=== PATIENT | female | born 1975 | race Caucasian/White ===

== ENCOUNTER 2017-01-07 12:48 | Emergency (ER) | payer OTHER ==
[2017-01-07] MEDS ORDERED: SODIUM CHLORIDE 500 ML IV STA (13:13)
[2017-01-07] MEDS ORDERED: MAG HYDROX/AL HYDROX/SIMETH 355 ML ORAL.SUSP PO ONE (13:13)
[2017-01-07] MEDS ORDERED: FAMOTIDINE 20 MG/50 ML IVPB 20 MG in PREMIX 50 IVPB ONE (13:13)
--- NOTE | 2017-01-07 13:17 | PDOC ---
History of Present Illness - General History Source: Patient Exam Limitations: No Limitations <Lawrence Bae - Last Filed: 01/07/17 13:58> <MonishaGuy - Last Filed: 01/07/17 17:24> - General Chief Complaint: Chest Pain Stated Complaint: CHEST TIGHTNESS Time Seen by Provider: 01/07/17 13:02 - History of Present Illness Initial Comments: 01/07/17 13:58 The patient is a 41 year old female with a significant past medical history of HTN (not on any medication) who presents to the ED s/p syncope earlier today. The patient reports she has been feeling generally weak for the past day or so. Today she woke up feeling ok, she was at work when she felt dizzy, nauseas/ vomited x 1, and then syncopized around 9 am earlier today. She also states a burning sensation in her chest after she vomited. The pt denies any preceeding headache, chest pain, back pain, abd pain, diarrhea/melena. The patient reports she was recently diagnosed with a UTI and prescribed cipro and diflucan 2 days ago. She states she was at her baseline 2 days ago but reports dizziness and generalized weakness since yesterday. She notes she took the medication around 6:30 am this morning. She states her last menstrual period was on 12/17/26. Denies nausea upon arrival to the ED but reports a slight headache. Denies fevers or chills. Denies shortness of breath or palpitations. Denies abdominal pain or diarrhea. Denies any other symptoms. Denies a history of substance abuse. (Lawrence Bae) Past History <Lawrence Bae - Last Filed: 01/07/17 13:58> - Past Medical History Anemia: No Asthma: No Cancer: No Cardiac Disorders: No CVA: No COPD: No CHF: No Dementia: No Diabetes: No GI Disorders: No Disorders: No HTN: Yes (NO MEDS AT THIS TIME) Hypercholesterolemia: No Liver Disease: No Seizures: No Thyroid Disease: No - Surgical History Abdominal Surgery: Yes Appendectomy: No Cardiac Surgery: No Cholecystectomy: No Lung Surgery: No Neurologic Surgery: No Orthopedic Surgery: No - Psycho/Social/Smoking Cessation Hx Anxiety: No Suicidal Ideation: No Smoking Status: No Smoking History: Never smoked Years of Tobacco Use: 0 Have you smoked in the past 12 months: No Number of Cigarettes Smoked Daily: 0 Information on smoking cessation initiated: No Hx Alcohol Use: No Drug/Substance Use Hx: No Substance Use Type: None Hx Substance Use Treatment: No <Guy Bearden - Last Filed: 01/07/17 17:24> - Past Medical History Allergies/Adverse Reactions: Allergies Allergy/AdvReac Type Severity Reaction Status Date / Time No Known Drug Allergies Allergy Verified 01/07/17 14:17 Home Medications: Ambulatory Orders No Home Medications 0 dose .ROUTE UTDICT 04/03/13 Diphenhydramine HCl [Benadryl Capsules -] 25 mg PO TID PRN #14 capsule 01/07/17 Cardiac Specific PMH - Complaint Specific PMHX Pacemaker: No <Guy Bearden - Last Filed: 01/07/17 17:24> Review of Systems - Review of Systems Able to Perform ROS?: Yes All Other Systems: Reviewed and Negative <Lawrence Bae - Last Filed: 01/07/17 13:58> <Guy Bearden - Last Filed: 01/07/17 17:24> - Review of Systems Comments:: 01/07/17 13:58 CONSTITUTIONAL: + generalized weakness No reported: Fever, Chills, Diaphoresis, Malaise, Loss of Appetite HEENT: No reported: Rhinorrhea, Nasal Congestion, Throat Pain, Throat Swelling, Difficulty Swallowing, Mouth Swelling, Ear Pain, Eye Pain, Visual Changes CARDIOVASCULAR: +burning chest pain, Syncope, Lightheadedness No reported: Palpitations, Irregular Heart Rate, Peripheral Edema RESPIRATORY: No reported: Cough, Shortness of Breath, SOB with Exertion, Orthopnea, Wheezing , Stridor, Hemoptysis GASTROINTESTINAL: + nausea, vomiting No reported: Abdominal pain, Abdominal Distension, Diarrhea, Constipation, Melena, Hematochezia GENITOURINARY: No reported: Dysuria, Frequency, Urgency, Hesitancy, Flank Pain, Genital Pain MUSCULOSKELETAL: No reported: Myalgia, Arthralgia, Joint Swelling, Back pain, Neck Pain SKIN: No reported: Rash, Itching, Pallor HEMEATOLOGIC/IMMUNOLOGIC: No reported: Easy Bleeding, Easy Bruising, Lymphadenopathy, Frequent infections ENDOCRINE: No reported: Unexplained Weight Gain, Unexplained Weight Loss, Heat Intolerance , Cold Intolerance NEUROLOGIC:+ dizziness, loss of consciousness, headache No reported: Focal Weakness, Paresthesias, Vertigo, Unsteady Gait, Seizure, Mental Status Changes, Incontinence PSYCHIATRIC: No reported: Anxiety, Depression (Lawrence Bae) *Physical Exam <KathiaJaredalexis - Last Filed: 01/07/17 13:58> <Guy Bearden - Last Filed: 01/07/17 17:24> - Vital Signs Last Vital Signs Temp Pulse Resp BP Pulse Ox 98.4 F 84 22 134/84 96 01/07/17 12:57 01/07/17 12:57 01/07/17 12:57 01/07/17 12:57 01/07/17 12:57 - Physical Exam Comments: 01/07/17 13:59 GENERAL: The patient is awake, alert, and fully oriented, Nontoxic - in no acute distress. HEAD: Normocephalic, atraumatic. EYES: extraocular movements intact, sclera anicteric, conjunctiva clear. ENT: Normal voice, Moist mucous membranes. NECK: Normal range of motion, supple LUNGS: Breath sounds equal, clear to auscultation bilaterally. No wheezes, no rhonchi, no rales. HEART: Regular rate and rhythm, without murmur, rub or gallop. ABDOMEN: Soft, nontender, normoactive bowel sounds. No guarding, no rebound.No CVA tenderness EXTREMITIES: Normal range of motion, no edema. No clubbing or cyanosis. No cords, erythema, or tenderness. NEUROLOGICAL: No facial assymetry, Normal speech, PSYCH: Normal mood, normal affect. SKIN: Warm, Dry, normal turgor, (Lawrence Bae) Heart Score/ECG Review <KathiaJaredalexis - Last Filed: 01/07/17 13:58> <Guy Bearden - Last Filed: 01/07/17 17:24> - ECG Impressions Comment:: 01/07/17 13:17 Twelve-lead EKG was performed and reviewed by me. There is normal sinus rhythm with a normal rate. Rate of 78 The axis is normal. The intervals are normal. There is normal R wave progression There are no ST or T wave abnormalities. Impression: Normal twelve-lead EKG (Guy Bearden) ED Treatment Course - LABORATORY CBC & Chemistry Diagram: 01/07/17 13:25 01/07/17 13:25 <Lawrence Bae - Last Filed: 01/07/17 13:58> - LABORATORY CBC & Chemistry Diagram: 01/07/17 13:25 01/07/17 13:25 <Guy Bearden - Last Filed: 01/07/17 17:24> - ADDITIONAL ORDERS Additional order review: Laboratory Results 01/07/17 01/07/17 14:12 13:25 Sodium 142 Potassium 3.7 Chloride 110 H Carbon Dioxide 22 Anion Gap 10 BUN 11 D Creatinine 0.8 D Creat Clearance w eGFR > 60 Random Glucose 103 Calcium 8.3 L Total Bilirubin 0.4 AST 19 D ALT 20 D Alkaline Phosphatase 67 D Total Protein 6.9 Albumin 3.5 Urine Color Straw Urine Appearance Clear Urine pH 7.0 Ur Specific [place] 1.004 Urine Protein Negative Urine Glucose (UA) Negative Urine Ketones Negative Urine Blood 1+ H Urine Nitrite Negative Urine Bilirubin Negative Urine Urobilinogen Negative Ur Leukocyte Esterase Negative Urine RBC <1 Urine WBC <1 Ur Epithelial Cells Rare Urine HCG, Qual Negative 01/07/17 13:25 RBC 4.36 MCV 88.0 MCHC 32.9 RDW 12.8 MPV 8.4 Neutrophils % 74.3 D Lymphocytes % 16.2 D Monocytes % 7.3 Eosinophils % 1.6 Basophils % 0.6 - Medications Given in the ED: ED Medications Discontinued Medications Generic Name Dose Route Start Last Admin Trade Name Freq PRN Reason Stop Dose Admin Al Hydroxide/Mg Hydroxide 30 ml 01/07/17 13:13 01/07/17 13:30 Mylanta Suspension - PO 01/07/17 13:14 30 ml ONCE ONE Administration Famotidine/Sodium Chloride 20 50 mls @ 100 mls/hr 01/07/17 13:13 01/07/17 13:30 mg/ Miscellaneous IVPB 01/07/17 13:42 100 mls/hr ONCE ONE Administration Sodium Chloride 500 mls @ 500 mls/hr 01/07/17 13:13 01/07/17 13:30 Normal Saline - IV 01/07/17 14:12 500 mls/hr ASDIR STA Administration Medical Decision Making <Lawrence Bae - Last Filed: 01/07/17 13:58> <Guy Bearden - Last Filed: 01/07/17 17:24> - Medical Decision Making 01/07/17 13:14 41y F hx of ?htn (untreated on meds) presnts with syncopal episode - the pt with recent diagnosis of uti, presents with syncopal episode while at work with a sensation of feeling lightheaded/weak prior to her syncopal episode without associated preceding headache, abd pain, chest pain, neuro symptoms, back pain - pt did complaing of chest pain, but onset was after she vomited and described as a burning sensation. suspect vasovagal episode, with some GERD/acid reflux after the vomiting will ck labs to r/o anemia, metabolic dernagement, , ekg to r/o arrythmia will give pepcid/maalox, fluids will reassess A portion of this note was documented by scribe services under my direction. I have reviewed the details of the note, within reason, and agree with the documentation with the following case summary and management plan written by me 01/07/17 17:24 pts labs reviewed unremarkble pt feeling improved will dc with pmd fu return precautions were discussed I discussed the physical exam findings, ancillary test results and final diagnoses with the patient. I answered all of the patient's questions. The patient was satisfied with the care received and felt comfortable with the discharge plan and treatment plan. The patient will call their primary care physician within 24 hours to arrange follow-up and will return to the Emergency Department with any new, persistent or worsening symptoms. (Guy Bearden) *DC/Admit/Observation/Transfer <Lawrence Bae - Last Filed: 01/07/17 13:58> - Discharge Dispostion Admit: No <Guy Bearden - Last Filed: 01/07/17 17:24> Diagnosis at time of Disposition: Syncope and collapse - Discharge Dispostion Disposition: HOME Condition at time of disposition: Improved - Prescriptions Prescriptions: Diphenhydramine HCl [Benadryl Capsules -] 25 mg PO TID PRN #14 capsule PRN Reason: itch - Referrals Referrals: Leoncio Avila MD [Primary Care Provider] - - Patient Instructions Printed Discharge Instructions: DI for Syncope in Adults (Fainting) Additional Instructions: Return to the emergency department immediately with ANY new, persistent or worsening symptoms. You MUST call and follow up with your doctor tomorrow for further evaluation of your symptoms. Results were discussed with you. Please make sure your doctor reviews the results of your emergency evaluation. If you had any xrays during your visit, it was read preliminarily by myself, a Radiologist will review it and if there are any additional findings we will call you. Print Language: BULGARIAN - Attestations Scribe Attestion: 01/07/17 13:59 Documentation prepared by Lawrence Bae, acting as medical physiologist for Guy Bearden MD (Lawrence Bae)
[2017-01-07 13:20] VITALS: TEMP 98.4; BMI 27.4
[2017-01-07] MEDS ORDERED: MAG HYDROX/AL HYDROX/SIMETH 30 ML UNIT-DOSE CUP ONE (13:33)
[2017-01-07] MEDS ORDERED: FAMOTIDINE 20 MG/50 ML IVPB 50 ML IVPB ONE (13:33)
[2017-01-07 13:38] LABS: BASOPHIL 0.6 % (0-2.0); EOSINOPHIL 1.6 % (0-4.5); MCHC 32.9 g/dl (32.0-36.0); MEAN PLT VOLUME 8.4 fl (7.5-11.1); NEUTROPHILS 74.3 % (42.8-82.8); PLATELET COUNT 236 K/MM3 (134-434); RDW 12.8 % (11.6-15.6); WHITE BLOOD COUNT 8.3 K/mm3 (4.0-10.0)
[2017-01-07 14:04] LABS: ALBUMIN 3.5 g/dl (3.4-5.0); ANION GAP 10 (8-16); CALCIUM 8.3 mg/dL (8.5-10.1); CO2 22 mmol/L (21-32); CREATININE 0.8 mg/dL (0.55-1.02); GLUCOSE,RANDOM 103 mg/dL (74-106); SGPT/ALT 20 U/L (12-78)
[2017-01-07 14:05] LABS: ALK PHOS 67 U/L (45-117); BILIRUBIN,TOTAL 0.4 mg/dL (0.2-1.0); TOT PROT 6.9 g/dl (6.4-8.2)
[2017-01-07 14:09] LABS: SGOT/AST 19 U/L (15-37)
[2017-01-07 14:27] LABS: URINE APPEARANCE CLEAR; URINE BILIRUBIN NEGATIVE (NEGATIVE); URINE COLOR STRAW; URINE GLUCOSE (UA) NEGATIVE (NEGATIVE); URINE KETONE NEGATIVE (NEGATIVE); URINE LEUK ESTERASE NEGATIVE (NEGATIVE); URINE NITRITE NEGATIVE (NEGATIVE); URINE PROTEIN NEGATIVE (NEGATIVE); URINE UROBILINOGEN NEGATIVE E.U./dl (0.2-1.0)
[2017-01-07 14:31] LABS: URINE BLOOD 1+ (NEGATIVE)
[2017-01-07 14:32] LABS: URINE RBC <1 /hpf (0-3); URINE WBC <1 /hpf (3-5)
--- NOTE | 2017-01-07 16:31 | EKG ---
Test Reason : Blood Pressure : / mmHG Vent. Rate : 078 BPM Atrial Rate : 078 BPM P-R Int : 156 ms QRS Dur : 088 ms QT Int : 392 ms P-R-T Axes : 043 011 025 degrees QTc Int : 446 ms NORMAL SINUS RHYTHM NORMAL ECG WHEN COMPARED WITH ECG OF 25-SEP-2013 11:44, NO SIGNIFICANT CHANGE WAS FOUND Confirmed by MD JAMES, CINDY ([id number]) on 01/07/2017 4:31:03 PM Referred By: Confirmed By:CINDY RAMIREZ MD
[2017-01-07 17:30] VITALS: BP 152/79; PULSE 83
== END 2017-01-07 17:30 | disposition home or self-care (01) ==
LOC: JER 12:48
PROC: 3E033GC Introduction of Other Therapeutic Substance into Peripheral Vein, Percutaneous Approach (ICD-10-PCS; principal; 2017-01-07)
DX: R55 Syncope and collapse (principal)
CPT/HCPCS: 36415; 80053; 81003; 81015; 84703; 85025; 93005; 93010; 96365; 99283-25

== ENCOUNTER 2022-11-30 04:12 | Day surgery (SDC) | payer BC ==
[2022-11-25 14:47] VITALS: BMI 26.2
[2022-11-30] MEDS ORDERED: PROPOFOL 20 ML ONE ×2 (10:12→11:06)
[2022-11-30] MEDS ORDERED: DEXAMETHASONE SOD PHOSPHATE 4 MG/1 ML VIAL ONE (11:08)
[2022-11-30] MEDS ORDERED: ONDANSETRON 4 MG/2 ML VIAL ONE (11:08)
[2022-11-30] MEDS ORDERED: LIDOCAINE HCL/PF 2% SDV 5ML VIAL ONE (11:08)
[2022-11-30] MEDS ORDERED: IBUPROFEN 600 MG TABLET (FP) PO PRN (12:05)
[2022-11-30] MEDS ORDERED: oxyCODONE HCL 5 MG TABLET PO PRN ×3 (12:05)
[2022-11-30] MEDS ORDERED: PROMETHAZINE HCL 25 MG/1 ML VIAL IVPUSH PRN (12:05)
[2022-11-30] MEDS ORDERED: ACETAMINOPHEN 1000 MG/100 ML BAG IVPB ONE ×2 (12:05→12:33)
[2022-11-30] MEDS ORDERED: IBUPROFEN 800 MG/8 ML IJ IVPB PRN (12:05)
[2022-11-30] MEDS ORDERED: ONDANSETRON 4 MG/2 ML VIAL IVPUSH PRN ×2 (12:05→18:05)
[2022-11-30] MEDS ORDERED: ELECTROLYTE-148 SOLN 1,000 ML IV SCH (12:15)
[2022-11-30] MEDS ORDERED: LACTATED RINGERS SOLUTION 1,000 ML IV SCH (12:15)
[2022-11-30] MEDS ORDERED: ACETAMINOPHEN INJECTION 100 ML IVPB ONE (12:23)
[2022-11-30 13:53] VITALS: RESP 18
[2022-11-30 15:14] VITALS: BP 118/68; PULSE 72; TEMP 98.4
== END 2022-11-30 14:36 | disposition home or self-care (01) ==
LOC: JASU-SURG 04:12
PROVIDERS: ATTEND Obstetrics & Gynecology
PROC: 0UB98ZZ Excision of Uterus, Via Natural or Artificial Opening Endoscopic (ICD-10-PCS; principal; 2022-11-30 11:00)
DX: N92.1 Excessive and frequent menstruation with irregular cycle (principal); N84.0 Polyp of corpus uteri
CPT/HCPCS: 81025; 88305-TC; 94760